=== PATIENT | male | born 1950 ===

== ENCOUNTER 2023-11-05 11:02 | Outpatient (CLI) | payer MEDICARE, SELFPAY ==
[2023-11-05 19:12] LABS: Basophils Percent Auto 0.4 % (0.2-1.2); Eosinophils Absolute Auto 0.1 K/mm3 (0-0.3); Eosinophils Percent Auto 1.3 % (0-4.4); Hemoglobin 15.4 g/dL (14.0-18.0); Immature Granulocyte Absolute 0.06 K/mm3 (0.00-0.031); Immature Granulocyte Percent A 0.6 % (0-0.5); Lymphocytes Absolute Auto 1.79 K/mm3 (0.9-3.2); Lymphocytes Percent Auto 18.8 % (18.3-44.2); Mean Corpuscular HGB Conc 32.1 g/dl (32-36); Mean Corpuscular Hemoglobin 30.6 pg (26-34); Mean Corpuscular Volume 95.2 fl (80-100); Mean Platelet Volume 10.7 fl (7.4-10.4); Monocytes Absolute Auto 0.7 K/mm3 (0.1-0.6); Monocytes Percent Auto 6.8 % (2.6-8.5); Neutrophils Absolute Auto 6.9 K/mm3 (1.3-6.7); Neutrophils Percent Auto 72.1 % (45.5-73.1); Platelet Count Result 243 k/mm3 (150-375); Red Blood Count 5.04 M/mm3 (4.6-6.20); Red Cell Distribution Width 14.8 % (11.5-14.5); White Blood Count 9.5 K/mm3 (4.5-10.0)
[2023-11-05 20:30] LABS: Alanine Aminotransferase 20 U/L (6-50); Albumin Level 4.7 g/dL (3.5-5.1); Alkaline Phosphatase 104 U/L (38-126); Anion Gap 13 mmol/L (4-12); Aspartate Amino Transferase 45 U/L (17-59); Bilirubin,Total 0.4 mg/dL (0.2-1.3); Blood Urea Nitrogen 15 mg/dL (9-20); Calcium 9.5 mg/dL (8.4-10.2); Carbon Dioxide 23 mmol/L (22-30); Chloride 103 mmol/L (98-107); Cholesterol 112 mg/dL (0-200); Estimated Glomerular Filt Rate > 60; Glucose 96 mg/dL (65-110); HDL Direct 34 mg/dL; Potassium 4.4 mmol/L (3.4-5.0); Sodium 139 mmol/L (137-145); Triglycerides 177 mg/dL (<150)
[2023-11-05 20:41] LABS: LDL Cholesterol Direct 44 mg/dL
== END 2023-11-05 11:03 | disposition home or self-care (01) ==
PROVIDERS: PCP Nurse Practitioner Adult Health; Visit Provider Nurse Practitioner Adult Health
DX: E78.5 Hyperlipidemia, unspecified (principal)
CPT/HCPCS: 36415; 80053; 80061; 84443; 85025

== ENCOUNTER 2024-03-09 14:45 | Outpatient (CLI) | payer MEDICARE, SELFPAY ==
[2024-03-09 19:12] LABS: Basophils Percent Auto 0.4 % (0.2-1.2); Eosinophils Absolute Auto 0.1 K/mm3 (0-0.3); Eosinophils Percent Auto 1.2 % (0-4.4); Hematocrit 42.9 % (42.0-52.0); Immature Granulocyte Absolute 0.05 K/mm3 (0.00-0.031); Immature Granulocyte Percent A 0.6 % (0-0.5); Lymphocytes Absolute Auto 1.58 K/mm3 (0.9-3.2); Lymphocytes Percent Auto 17.6 % (18.3-44.2); Mean Corpuscular Hemoglobin 31.7 pg (26-34); Mean Corpuscular Volume 90.7 fl (80-100); Mean Platelet Volume 10.7 fl (7.4-10.4); Monocytes Absolute Auto 0.6 K/mm3 (0.1-0.6); Monocytes Percent Auto 6.9 % (2.6-8.5); Neutrophils Absolute Auto 6.6 K/mm3 (1.3-6.7); Neutrophils Percent Auto 73.3 % (45.5-73.1); Platelet Count Result 243 k/mm3 (150-375); Red Blood Count 4.73 M/mm3 (4.6-6.20); Red Cell Distribution Width 14.4 % (11.5-14.5)
[2024-03-09 19:25] LABS: Alanine Aminotransferase 18 U/L (6-50); Alkaline Phosphatase 112 U/L (38-126); Amylase 93 U/L (30-110); Anion Gap 5 mmol/L (4-12); Aspartate Amino Transferase 33 U/L (17-59); Bilirubin,Total 0.5 mg/dL (0.2-1.3); Blood Urea Nitrogen 11 mg/dL (9-20); Carbon Dioxide 24 mmol/L (22-30); Chloride 106 mmol/L (98-107); Cholesterol 131 mg/dL (0-200); Estimated Glomerular Filt Rate > 60; Glucose 103 mg/dL (65-110); HDL Direct 28 mg/dL; Lipase 284 U/L (23-300); Potassium 4.3 mmol/L (3.4-5.0); Sodium 135 mmol/L (137-145); Triglycerides 270 mg/dL (<150)
[2024-03-09 19:36] LABS: LDL Cholesterol Direct 62 mg/dL
== END 2024-03-09 14:46 | disposition home or self-care (01) ==
PROVIDERS: PCP Nurse Practitioner Adult Health; Visit Provider Nurse Practitioner Adult Health
DX: C25.9 Malignant neoplasm of pancreas, unspecified (principal); E78.5 Hyperlipidemia, unspecified
CPT/HCPCS: 36415; 80053; 80061; 82150; 83690; 85025

== ENCOUNTER 2024-07-14 14:54 | Outpatient (CLI) | payer MEDICARE, MEDICAID, SELFPAY ==
--- OUTSIDE RECORDS SUMMARY | 2024-07-14 16:18 | XMS_ITS | Clinical Summary ---
Author Organization [facility] Medical [facility] Building A Address [address] [place] [address] Care Team Providers Care General Claims Agent Name Role Phone Magnus Villafuerte MD Primary Care Provider [phone] Allergies No known active allergies Medications ibuprofen (ADVIL,MOTRIN) 200 mg tab/cap Take 1 tablet/capsule (200 mg total) by mouth every 6 (six) hours as needed for pain Active aspirin 81 mg enteric coated tablet Take 1 tablet (81 mg total) by mouth daily 9 Active acetaminophen (TYLENOL) 500 mg tablet Take 2 tablets (1,000 mg total) by mouth every 6 (six) hours as needed 9 Active atorvastatin (LIPITOR) 80 mg tablet Take 1 tablet (80 mg total) by mouth daily 30 tablet 11 1 Active cyclobenzaprine (FLEXERIL) 5 mg tablet Take 1 tablet (5 mg total) by mouth 3 (three) times a day as needed for muscle spasms 12 tablet 3 Active HYDROcodone-js taminophen (NORCO) 5-325 mg per tabletIndicatio ns:Pain Take 1 tablet by mouth every 6 (six) hours as needed for pain 12 tablet 3 Active lidocaine (LIDODERM) 5 % Place 1 patch on the skin daily as needed for pain (back or hip pain) Remove & discard patch within 12 hours or as directed by . 30 patch 3 Active polyethylene glycol (MIRALAX) 17 gram packetIndicatio ns:constipation Take 1 packet (17 g total) by mouth daily as needed for constipation 12 packet 3 Active Active Problems Problem Noted Date Diagnosed Date Mixed hyperlipidemia 04/16/2023 Assessment & Plan (04/16/2023 9:57 AM CAN TENDER): Stable continue Lipitor Hx of AKA (above knee amputation), right 023 Assessment & Plan (03/05/2023 12:03 PM CAN TENDER): Impression: Patient is status post right thuhk-mgm-gbkq amputation. Surgical incision is well approximated, healing with kat intact. The patient has an adequate residual limb that would be appropriate for a level K3 prosthesis. They're currently undergoing prosthesis evaluation and fitting for a right eegmq-ogk-rxkh prosthesis. Patient has no complaints or concerns at this time. I have examined the patient and recommend a right ozeow-dzx-agtn prosthetic. The patient was a level K3 ambulator prior to his amputation. 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 Patient is very motivated to return to normal functioning once prosthesis is obtained and is capable walking on uneven surfaces and able to traverse multiple level barriers including stairs, curbs and hills. The patient currently has adequate upper extremity limb strength and ability to transfer from there chair to a bed, couch or toilet. The patient does not have any other comorbidities that would hinder their ability to return to full function within a reasonable amount of time. Plan: Kat removed at bedside. -patient to follow-up in 6 weeks. -recommend evaluation with [facility] for a right owfan-aja-pfzk prosthesis. Severe malnutrition 02/14/2023 Mass of pancreas 02/06/2023 Pancreatic mass 02/04/2023 Lung nodule 02/04/2023 Localized swelling of right foot 01/31/2023 Cellulitis of foot 01/30/2023 PAOD (peripheral arterial occlusive disease) Assessment & Plan (04/16/2023 9:57 AM CAN TENDER): Status post right above knee amputation. Doing well and completely healed. Continue working with [facility], can follow-up as needed. Tobacco abuse disorder 07/03/2020 Surgical History Surgery Date Site/Laterality Comments FEMORAL ARTERY STENT 04/14/2019 - 04/13/2020 Medical History Medical History Date Comments High cholesterol Mixed hyperlipidemia 04/16/2023 Social History Tobacco Use Types Packs/Day Years Used Date Smoking Tobacco: Every Day Cigarettes 0.1 50 Smokeless Tobacco: Never Tobacco Cessation:Ready to Q uit: Not Asked; Counseling Given: Not Answered Alcohol Use Standard Drinks/Week Comments Not Currently 0 (1 standard drink = 0.6 oz pur e alcohol) [facility] Utilities Answer Date Recorded In the past 12 months has [employer] e electric, gas, oil, or water company threatened to shut off services in your home? No 02/14/2023 Social Connection and Isolation Panel [NHANES] A nswer Date Recorded In a typical week, how many times do you talk on the phone with family, friends, or neighbors? Three times a week 02/14/2023 How often do you get togethe r with friends or relatives? Three times a week 02/14/2023 How often do you attend chur ch or samaritan services? Never 02/14/2023 Do you belong to any clubs o r organizations such as presybeterian groups, unions, fraternal or athletic groups, or school groups? No 02/14/2023 How often do you attend meet ings of the clubs or organizations you belong to? Never 02/14/2023 Are you , , di vorced, , never , or living with a partner? Never 02/14/2023 AUDIT-C Answer Date Recorded Q1: How often do you have a drink containing alcohol? Never 02/05/2023 Q2: How many drinks containi ng alcohol do you have on a typical day when you are drinking? Patient does not drink Q3: How often do you have si x or more drinks on one occasion? Never 02/05/2023 Overall Financial Resource Strain (CARDIA) Answe r Date Recorded How hard is it for you to pa y for the very basics like food, housing, medical care, and heating? Not hard at all 02/14/2023 PHQ-2 Answer Date Recorded PHQ-2 Total Score (If total score is 3 or more points, staff should administer the PHQ-9) 0 02/05/2023 Hunger Vital Sign Answer Date Recorded Within the past 12 months, y ou worried that your food would run out before you got the money to buy more. Never true 02/15/20 23 Within the past 12 months, t he food you bought just didn't last and you didn't have money to get more. Never true 02/14/2023 PRAPARE - Transportation Answer Date Re corded In the past 12 months, has l ack of transportation kept you from medical appointments or from getting medications? No 06/2022 In the past 12 months, has l ack of transportation kept you from meetings, work, or from getting things needed for daily living? No 02/14/2023 Housing Stability Vital Sign Answer Demarco e Recorded In the last 12 months, was t here a time when you were not able to pay the mortgage or rent on time? No 02/14/2023 In the last 12 months, how many places have you lived? 1 02/14/2023 In the last 12 months, was t here a time when you did not have a steady place to sleep or slept in a fci (including now)? No 02/14/2023 Personal Safety Answer Date Recorded Have you ever been in or are you currently in a harmful physical or emotional relationship or is someone making you feel afraid or unsafe? Denies 02/05/2023 Sex and Gender Information Value Date Recorded Sex Assigned at Not on file Legal Sex Male 8:12 AM CAN TENDER Gender Identity Not on file Sexual Orientation Not on file Obstetrics History Last Filed Vital Signs Vital Sign Reading Time Taken Comments Blood Pressure 106/66 04/16/2023 9:41 AM CAN TENDER Pulse 84 04/16/2023 9:41 AM CAN TENDER Temperature 36.6 C (97.9 F) 02/18/2023 11:50 AM CAN TENDER Respiratory Rate 18 02/18/2023 11:50 AM CAN TENDER Oxygen Saturation 92% 04/16/2023 9:41 AM CAN TENDER Inhaled Oxygen Concentration - - Weight 59 kg (130 lb) 03/05/2023 10:31 AM CAN TENDER Height 182.9 cm (6') 03/05/2023 10:31 AM CAN TENDER Body Mass Index 17.63 03/05/2023 10:31 AM CAN TENDER Plan of Treatment Health Maintenance Due Date Last Done Comments Colon Cancer Screening-Colonoscopy 1950 Hepatitis C Screening 1950 DTaP/Tdap/Td Vaccine (1 - Tdap) 1961 Hepatitis B Screening 1968 Well Visit 65+ 2015 Zoster Vaccine (2 of 3) 09/15/2015 07/21/2015 Depression Screening 01/31/2024 01/30/2023 Fall Risk Assessment 02/19/2024 02/18/2023 Influenza Vaccine (Season Ended) 2024 12/19/19 19, 01/25/2015 Pneumococcal vaccine 65+ Completed 019, 12/26/2017, 05/15/2015 Abdominal Aortic Aneurysm (A AA) Screen Completed 02/01/2023, 01/31/2023, 07/08/2018 Procedures Procedure Name Priority Date/Time Associated Diagnosis Comments CT CHEST ABDOMEN W CONTRAST IP Routine 02/01/2023 3:12 PM CDT from Last 3 Months or Most Recently Relevant to Health Maintenance Results * CT Chest Abdomen W Contrast (02/01/2023 3:12 PM CDT) Anatomical Region Laterality Modality Body N/A Computed Tomogra phy 02/01/2023 4:44 PM CDT Narrative 02/01/2023 5:03 PM CDT EXAM DESCRIPTION: CT CHEST ABDOMEN W CONTRAST REASON FOR STUDY: Assess for malignancy.. TECHNIQUE: CT scan of the chest and abdomen performed with intravenous and without oral contrast using helical scanning technique with dynamic intravenous contrast injection. Reconstructed coronal and sagittal MPR images reviewed. All images stored on PACS. Automated exposure control was used as a dose optimization technique for this examination. CONTRAST TYPE/DOSE: 75mL of IOVERSOL 350 MG IODINE/ML INTRAVENOUS SYRINGE was injected via the intravenous COMPARISON: 01/31/2023 CT angiography of the abdomen REFERENCE: Per ACR white paper recommendations, unless otherwise specified no follow-up imaging is recommended for incidental renal and adrenal lesions per consensus recommendations based on imaging criteria. Further lab evaluation could be pursued based on clinical findings. FINDINGS: CHEST LUNGS: There is overall mild pulmonary emphysema. In the right lower lobe there is a 1.4 x 1.1 x 1.3 cm irregular/spiculated nodule. No pneumonic consolidation or pulmonary edema is seen PLEURA: No effusion. No pneumothorax. MEDIASTINUM/NASIR: No identified masses or abnormal nodes. HEART: Normal heart size. No pericardial effusion. No suspicious intracardiac filling defect is seen. VASCULATURE CHEST: There is moderate atherosclerosis of the great vessels without thoracic aortic aneurysm. There are coronary calcifications. AXILLA: No adenopathy. CHEST WALL: No masses. No subcutaneous air. HARDWARE/LIFELINES: None. MUSCULOSKELETAL CHEST: No aggressive bone lesion or acute fracture is seen. There are multiple Schmorl's nodes and multilevel degenerative disc disease in the visualized spine.. No high-grade osseous spinal canal stenosis is seen ABDOMEN LIVER: There is a cyst in the right eliza liver on image 92 series 2 there are additional too small to characterize hypoattenuating foci within the liver. Statistically these most likely represent cysts, but in light of the lung findings above, there are indeterminate. GALLBLADDER: Normal BILE DUCTS: No intrahepatic or extrahepatic ductal dilatation. SPLEEN: Normal size. No focal lesions. PANCREAS: There is enlargement of the pancreatic tail, measuring approximately 4.5 x 3.6 cm on image 109 of series 2. Within this focally enlarged area, the previously seen hypoattenuating 1.6 cm focus is not as well seen on this venous phase exam. (Image 111 of series 2). ADRENALS: Normal. KIDNEYS/URINARY TRACT: Hypoattenuating foci in the left kidney measure simple fluid density and are compatible with benign cysts. The renal parenchyma otherwise enhances symmetrically. There is no radiopaque urolithiasis or visualized hydroureteronephrosis. GI: Visualized colon is normal in course and in caliber and without wall thickening or evidence of obstruction.. There is a small hiatal hernia. The stomach is otherwise unremarkable. Visualized small bowel is unremarkable PERITONEUM: No ascites or free air. RETROPERITONEUM: No mass or adenopathy. VASCULATURE ABDOMEN: Redemonstrated occlusion of the visualized portions of the left common iliac artery stent. Right common iliac stent appears grossly patent, but there is stenosis in its proximal portion, better assessed on CT angiography from 01/31/2023. There is severe atherosclerosis of the infrarenal abdominal aorta with moderate narrowing of the aortic lumen in the infrarenal abdominal aorta. Stable infrarenal abdominal aortic aneurysm, measuring up to 3.3 cm. No gross change in the additional arteries, better evaluated on the comparison exam. No evidence of venous thrombosis is seen in the evaluated portions MUSCULOSKELETAL ABDOMEN: No acute findings. Degenerative disc disease. OTHER: No significant abnormality. IMPRESSION: 1.4 cm irregular/spiculated right lower lobe pulmonary nodule is suspicious for malignancy. Recommend PET-CT versus tissue sampling, in keeping with Fleischner Society recommendations. Focal enlargement of the pancreatic tail. 1.6 cm hypoattenuating focus is redemonstrated within this enlarged pancreatic tail. These findings are indeterminate. Recommend further evaluation with pancreatic protocol MRI. Multiple too small to characterize hypoattenuating foci in the liver. Statistically these most likely represent cysts, but in light of the lung findings, they are indeterminate. THIS IS AN ELECTRONICALLY VERIFIED FINAL REPORT 02/01/2023 5:03 PM - Electronically signed by Srinivasa Donohue M.D. MZ: DEBORA Report ID: [id number] Reading Location: [id number] Procedure Note Srinivasa Donohue MD - 02/01/2023 EXAM DESCRIPTION: CT CHEST ABDOMEN W CONTRAST REASON FOR STUDY: Assess for malignancy.. TECHNIQUE: CT scan of the chest and abdomen performed with intravenousand without oral contrast using helical scanning technique with dynamic intravenous contrast injection. Reconstructed coronal and sagittal MPRimages reviewed. All images stored on PACS. Automated exposure control wasused as a dose optimization technique for this examination. CONTRAST TYPE/DOSE: 75mL of IOVERSOL 350 MG IODINE/ML INTRAVENOUSSYRINGE was injected via the intravenous COMPARISON: 01/31/2023 CT angiography of the abdomen REFERENCE: Per ACR white paper recommendations, unless otherwise specifiedno follow-up imaging is recommended for incidental renal and adrenal lesionsper consensus recommendations based on imaging criteria. Further labevaluation could be pursued based on clinical findings. FINDINGS: CHEST LUNGS: There is overall mild pulmonary emphysema. In the right lowerlobe there is a 1.4 x 1.1 x 1.3 cm irregular/spiculated nodule. No pneumonic consolidation or pulmonary edema is seen PLEURA: No effusion. No pneumothorax. MEDIASTINUM/NASIR: No identified masses or abnormal nodes. HEART: Normal heart size. No pericardial effusion. No suspicious intracardiac filling defect is seen. VASCULATURE CHEST: There is moderate atherosclerosis of the great vessels without thoracic aortic aneurysm. There are coronary calcifications. AXILLA: No adenopathy. CHEST WALL: No masses. No subcutaneous air. HARDWARE/LIFELINES: None. MUSCULOSKELETAL CHEST: No aggressive bone lesion or acute fracture isseen. There are multiple Schmorl's nodes and multilevel degenerative discdisease in the visualized spine.. No high-grade osseous spinal canal stenosis isseen ABDOMEN LIVER: There is a cyst in the right eliza liver on image 92 series 2 thereare additional too small to characterize hypoattenuating foci within theliver. Statistically these most likely represent cysts, but in light of the lung findings above, there are indeterminate. GALLBLADDER: Normal BILE DUCTS: No intrahepatic or extrahepatic ductal dilatation. SPLEEN: Normal size. No focal lesions. PANCREAS: There is enlargement of the pancreatic tail, measuring approximately 4.5 x 3.6 cm on image 109 of series 2. Within this focally enlarged area, the previously seen hypoattenuating 1.6 cm focus is not aswell seen on this venous phase exam. (Image 111 of series 2). ADRENALS: Normal. KIDNEYS/URINARY TRACT: Hypoattenuating foci in the left kidney measuresimple fluid density and are compatible with benign cysts. The renal parenchyma otherwise enhances symmetrically. There is no radiopaque urolithiasis or visualized hydroureteronephrosis. GI: Visualized colon is normal in course and in caliber and without wall thickening or evidence of obstruction.. There is a small hiatal hernia.The stomach is otherwise unremarkable. Visualized small bowel is unremarkable PERITONEUM: No ascites or free air. RETROPERITONEUM: No mass or adenopathy. VASCULATURE ABDOMEN: Redemonstrated occlusion of the visualized portionsof the left common iliac artery stent. Right common iliac stent appearsgrossly patent, but there is stenosis in its proximal portion, better assessed onCT angiography from 01/31/2023. There is severe atherosclerosis of the infrarenal abdominal aorta with moderate narrowing of the aortic lumen inthe infrarenal abdominal aorta. Stable infrarenal abdominal aortic aneurysm, measuring up to 3.3 cm. No gross change in the additional arteries,better evaluated on the comparison exam. No evidence of venous thrombosis isseen in the evaluated portions MUSCULOSKELETAL ABDOMEN: No acute findings. Degenerative disc disease. OTHER: No significant abnormality. IMPRESSION: 1.4 cm irregular/spiculated right lower lobe pulmonary nodule issuspicious for malignancy. Recommend PET-CT versus tissue sampling, in keeping with Fleischner Society recommendations. Focal enlargement of the pancreatic tail. 1.6 cm hypoattenuating focusis redemonstrated within this enlarged pancreatic tail. These findings are indeterminate. Recommend further evaluation with pancreatic protocol MRI. Multiple too small to characterize hypoattenuating foci in the liver. Statistically these most likely represent cysts, but in light of the lung findings, they are indeterminate. THIS IS AN ELECTRONICALLY VERIFIED FINAL REPORT 02/01/2023 5:03 PM - Electronically signed by Srinivasa Donohue M.D. MZ: DEBORA Report ID: [id number] Reading Location: [place] [id number] [address] [facility] DO IMG CT PROCEDURES Tamra l Result from Last 3 Months or Most Recently Relevant to Health Maintenance Insurance [facility] MEDICAID GENERIC RISK OTHER IDPA [facility] MEDICARE ADVANTAGE IDPA [employer] MEDICARE ADVANTAGE Advance Directives For more information, please contact: [phone] Documents on File Type Date Recorded Patient Fret Saw Operator Expl anation ADVANCE DIRECTIVE 02/17/2023 11:49 AM POLS T - Phys Order for PT Preferences ADVANCE DIRECTIVE 02/16/2023 12:46 PM Stoney r of Centrifugal Extractor Operator-Medical ADVANCE DIRECTIVE 02/11/2023 2:26 PM Stoney [facility] of Centrifugal Extractor Operator-Medical * Full Code (Latest Code Status on File) Date Activated Date Inactivated Comments 02/07/2023 9:42 AM 02/18/2023 5:44 PM * Full Code Date Activated Date Inactivated Comments 02/05/2023 2:21 PM 02/07/2023 9:42 AM * Full Code Date Activated Date Inactivated Comments 01/30/2023 9:07 PM 02/05/2023 1:23 PM * Full Code Date Activated Date Inactivated Comments 01/30/2023 7:29 PM 01/30/2023 9:07 PM Healthcare Agents on File Name Relationship Healthcare Agent Relationshi p Communication Carlos Enrique [facility] Health Care Agent Jas V[facility] Health Care Agent Care Teams General Claims Agent Relationship Specialty Start Date End Date Magnus Villafuerte MD PCP - General Family Practice 01/30/23
--- OUTSIDE RECORDS SUMMARY | 2024-07-14 16:18 | XMS_ITS | Continuity of Care Document ---
Author Name [facility] Organization [facility] Care Team Providers Care Insurance Account Representative Name Role Phone [facility] Unavailable Unavailable Problems Combined list of problems from [facility] and [facility] facilities. It does not include entries that were removed or entered in error. 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 Diagnosis: ICD-10-CM I73.9 Peripheral vascular disease, unspecified Active Diagnosis [facility] Diagnosis: ICD-10-CM M86.8X9 Other osteomyelitis, unspecified sites Active Diagnosis [facility] Diagnosis: ICD-10-CM Z00.01 Encounter for general adult medical exam w abnormal findings Active Diagnosis [facility] Results Combined list of recent chemistry, hematology and other laboratory results from [facility] and [facility], ranging from 15 months to all on record, depending upon the facility. Order Name Results Value Reference Range Date Interpretation Specimen Comments Source GLUCOSE, BLOOD-po ct (STL) GLUCOSE [MASS/VOLU ME] IN BLOOD BY AUTOMATED TEST STRIP 82 mg/dL 72 - 99 05/14 Specimen Type: BLOOD Comment: Test Performed by: [id number] Meter #: [id number] Ordering Provider: Addie BHARDWAJ Report Released Date/Time: May 14, 2023 09:00 AM Reporting Lab: [address] [address] Performing Lab: [address] [address] [facility] CBC LEUKOCYTES [#/VOLUME] IN BLOOD BY AUTOMATED COUNT 9.9 10*3/uL 3.6 - 11.2 04/01 Specimen Type: BLOOD No comment entered. Ordering Provider: PRASANTH ROGERS Report Released Date/Time: Apr 01, 2023 12:28 PM Reporting Lab: [place] [phone] Performing Lab: [address] [address] [facility] CBC ERYTHROCYT ES [#/VOLUME] IN BLOOD BY AUTOMATED COUNT 4.45 10*6/uL 4.10 - 5.70 04/01 Specimen Type: BLOOD No comment entered. Ordering Provider: PRASANTH ROGERS Report Released Date/Time: Apr 01, 2023 12:28 PM Reporting Lab: [address] [address] Performing Lab: [address] [address] [facility] CBC HEMOGLOBIN [MASS/VOLU ME] IN BLOOD 13.7 g/dL 13.1 - 16.8 04/01 Specimen Type: BLOOD No comment entered. Ordering Provider: PRASANTH ROGERS Report Released Date/Time: Apr 01, 2023 12:28 PM Reporting Lab: [address] [address] Performing Lab: [address] [address] [facility] CBC HEMATOCRIT [VOLUME FRACTION] OF BLOOD 40.9 38.2 - 48.4 04/01 Specimen Type: BLOOD No comment entered. Ordering Provider: PRASANTH ROGERS Report Released Date/Time: Apr 01, 2023 12:28 PM Reporting Lab: [facility] [address] [place] [phone] Performing Lab: [facility] [address] [place] [address] [facility] CBC MCV [ENTITIC VOLUME] BY AUTOMATED COUNT 91.9 fL 80.0 - 100.0 04/01 Specimen Type: BLOOD No comment entered. Ordering Provider: PRASANTH ROGERS Report Released Date/Time: Apr 01, 2023 12:28 PM Reporting Lab: [facility] [address] [place] [address] Performing Lab: [address] [address] [facility] CBC MCH [ENTITIC MASS] BY AUTOMATED COUNT 30.8 pg 27.0 - 34.0 04/01 Specimen Type: BLOOD No comment entered. Ordering Provider: PRASANTH ROGERS Report Released Date/Time: Apr 01, 2023 12:28 PM Reporting Lab: [facility] [address] [place] [phone] Performing Lab: [address] [address] [facility] CBC MCHC [MASS/VOLU ME] BY AUTOMATED COUNT 33.5 g/dL 33.0 - 36.0 04/01 Specimen Type: BLOOD No comment entered. Ordering Provider: PRASANTH ROGERS Report Released Date/Time: Apr 01, 2023 12:28 PM Reporting Lab: [facility] [address] [place] [phone] Performing Lab: [facility] [address] [place] [phone] [facility] CBC PLATELETS [#/VOLUME] IN BLOOD BY AUTOMATED COUNT 237 10*3/uL 150 - 400 04/01 Specimen Type: BLOOD No comment entered. Ordering Provider: PRASANTH ROGERS Report Released Date/Time: Apr 01, 2023 12:28 PM Reporting Lab: [facility] [address] [facility] [address] Performing Lab: [facility] [address] [facility] [address] [facility] CBC PLATELET MEAN VOLUME [ENTITIC VOLUME] IN BLOOD BY AUTOMATED COUNT 10.3 fL 7.5 - 11.2 04/01 Specimen Type: BLOOD No comment entered. Ordering Provider: PRASANTH ROGERS Report Released Date/Time: Apr 01, 2023 12:28 PM Reporting Lab: [facility] [address] [facility] [address] Performing Lab: [facility] [address] [place] [phone] [facility] CBC ERYTHROCYT E DISTRIBUTI ON WIDTH [RATIO] BY AUTOMATED COUNT 15.1 11.8 - 15.1 04/01 Specimen Type: BLOOD No comment entered. Ordering Provider: PRASANTH ROGERS Report Released Date/Time: Apr 01, 2023 12:28 PM Reporting Lab: [facility] [address] [facility] [address] Performing Lab: [facility] [address] [place] [phone] [facility] CBC LYMPHOCYTE S/100 LEUKOCYTES IN BLOOD BY AUTOMATED COUNT 18 04/01 Specimen Type: BLOOD No comment entered. Ordering Provider: PRASANTH ROGERS Report Released Date/Time: Apr 01, 2023 12:28 PM Reporting Lab: [facility] [address] [facility] [address] Performing Lab: [facility] [address] [facility] [address] [facility] CBC MONOCYTES/ 100 LEUKOCYTES IN BLOOD BY AUTOMATED COUNT 7 04/01 Specimen Type: BLOOD No comment entered. Ordering Provider: PRASANTH ROGERS Report Released Date/Time: Apr 01, 2023 12:28 PM Reporting Lab: [facility] [address] [place] [phone] Performing Lab: [facility] [address] [facility] [address] [facility] CBC NEUTROPHIL S/100 LEUKOCYTES IN BLOOD BY AUTOMATED COUNT 72 04/01 Specimen Type: BLOOD No comment entered. Ordering Provider: PRASANTH ROGERS Report Released Date/Time: Apr 01, 2023 12:28 PM Reporting Lab: [facility] [address] [place] [phone] Performing Lab: [facility] [address] [place] [phone] [facility] CBC EOSINOPHIL S/100 LEUKOCYTES IN BLOOD BY AUTOMATED COUNT 2 04/01 Specimen Type: BLOOD No comment entered. Ordering Provider: PRASANTH ROGERS Report Released Date/Time: Apr 01, 2023 12:28 PM Reporting Lab: [address] [address] Performing Lab: [address] [address] [facility] CBC BASOPHILS/ 100 LEUKOCYTES IN BLOOD BY AUTOMATED COUNT 0 04/01 Specimen Type: BLOOD No comment entered. Ordering Provider: PRASANTH ROGERS Report Released Date/Time: Apr 01, 2023 12:28 PM Reporting Lab: [address] [address] Performing Lab: [address] [address] [facility] CBC LYMPHOCYTE S [#/VOLUME] IN BLOOD BY AUTOMATED COUNT 1.79 10*3/uL 0.77 - 4.50 04/01 Specimen Type: BLOOD No comment entered. Ordering Provider: PRASANTH ROGERS Report Released Date/Time: Apr 01, 2023 12:28 PM Reporting Lab: [facility] [address] [place] [phone] Performing Lab: [address] [address] [facility] CBC MONOCYTES [#/VOLUME] IN BLOOD BY AUTOMATED COUNT 0.72 10*3/uL 0.19 - 0.80 04/01 Specimen Type: BLOOD No comment entered. Ordering Provider: PRASANTH ROGERS Report Released Date/Time: Apr 01, 2023 12:28 PM Reporting Lab: [place] [address] Performing Lab: [place] [phone] [facility] CBC NEUTROPHIL S [#/VOLUME] IN BLOOD BY AUTOMATED COUNT 7.15 10*3/uL 2.10 - 8.00 04/01 Specimen Type: BLOOD No comment entered. Ordering Provider: PRASANTH ROGERS Report Released Date/Time: Apr 01, 2023 12:28 PM Reporting Lab: [place] [address] Performing Lab: [address] [facility] CBC EOSINOPHIL S [#/VOLUME] IN BLOOD BY AUTOMATED COUNT 0.17 10*3/uL 0.00 - 0.60 04/01 Specimen Type: BLOOD No comment entered. Ordering Provider: PRASANTH ROGERS Report Released Date/Time: Apr 01, 2023 12:28 PM Reporting Lab: [place] [address] Performing Lab: [place] [phone] [facility] CBC BASOPHILS [#/VOLUME] IN BLOOD BY AUTOMATED COUNT 0.03 10*3/uL 0.00 - 0.20 04/01 Specimen Type: BLOOD No comment entered. Ordering Provider: PRASANTH ROGERS Report Released Date/Time: Apr 01, 2023 12:28 PM Reporting Lab: [place] [address] Performing Lab: [address] [phone] [facility] COMPREHE NSIVE METABOLI C PANEL CREATININE [MASS/VOLU ME] IN SERUM OR PLASMA 0.78 mg/dL 0.7 - 1.3 04/01 Specimen Type: PLASMA Comment: No hemolysis noted. Ordering Provider: PRASANTH ROGERS Report Released Date/Time: Apr 01, 2023 12:28 PM Reporting Lab: [facility] [address] [facility] [address] Performing Lab: [facility] [address] [facility] [address] [facility] COMPREHE NSIVE METABOLI C PANEL UREA NITROGEN [MASS/VOLU ME] IN SERUM OR PLASMA 10.5 mg/dL 9.0 - 25.0 04/01 Specimen Type: PLASMA Comment: No hemolysis noted. Ordering Provider: PRASANTH ROGERS Report Released Date/Time: Apr 01, 2023 12:28 PM Reporting Lab: [address] [address] Performing Lab: [facility] [address] [facility] [address] [facility] COMPREHE NSIVE METABOLI C PANEL GLUCOSE [MASS/VOLU ME] IN SERUM OR PLASMA 104 mg/dL 72 - 99 04/01 H Specimen Type: PLASMA Comment: No hemolysis noted. Ordering Provider: PRASANTH ROGERS Report Released Date/Time: Apr 01, 2023 12:28 PM Reporting Lab: [address] [address] Performing Lab: [facility] [address] [facility] [address] [facility] COMPREHE NSIVE METABOLI C PANEL SODIUM [MOLES/VOL UME] IN SERUM OR PLASMA 135 meq/L 136 - 145 04/01 L Specimen Type: PLASMA Comment: No hemolysis noted. Ordering Provider: PRASANTH ROGERS Report Released Date/Time: Apr 01, 2023 12:28 PM Reporting Lab: [address] [address] Performing Lab: [address] [address] [facility] COMPREHE NSIVE METABOLI C PANEL POTASSIUM [MOLES/VOL UME] IN SERUM OR PLASMA 3.8 meq/L 3.5 - 5 04/01 Specimen Type: PLASMA Comment: No hemolysis noted. Ordering Provider: PRASANTH ROGERS Report Released Date/Time: Apr 01, 2023 12:28 PM Reporting Lab: [facility] [address] [facility] [address] Performing Lab: [facility] [address] [facility] [address] [facility] COMPREHE NSIVE METABOLI C PANEL CHLORIDE [MOLES/VOL UME] IN SERUM OR PLASMA 102 meq/L 98 - 107 04/01 Specimen Type: PLASMA Comment: No hemolysis noted. Ordering Provider: PRASANTH ROGERS Report Released Date/Time: Apr 01, 2023 12:28 PM Reporting Lab: [facility] [address] [place] [phone] Performing Lab: [facility] [address] [facility] [address] [facility] COMPREHE NSIVE METABOLI C PANEL CARBON DIOXIDE, TOTAL [MOLES/VOL UME] IN SERUM OR PLASMA 21 meq/L 22 - 31 04/01 L Specimen Type: PLASMA Comment: No hemolysis noted. Ordering Provider: PRASANTH ROGERS Report Released Date/Time: Apr 01, 2023 12:28 PM Reporting Lab: [facility] [address] [facility] [address] Performing Lab: [facility] [address] [facility] [address] [facility] COMPREHE NSIVE METABOLI C PANEL CALCIUM [MASS/VOLU ME] IN SERUM OR PLASMA 9.9 mg/dL 8.4 - 10.4 04/01 Specimen Type: PLASMA Comment: No hemolysis noted. Ordering Provider: PRASANTH ROGERS Report Released Date/Time: Apr 01, 2023 12:28 PM Reporting Lab: [facility] [address] [facility] [address] Performing Lab: [facility] [address] [facility] [address] [facility] COMPREHE NSIVE METABOLI C PANEL PROTEIN [MASS/VOLU ME] IN SERUM OR PLASMA 7.0 g/dL 6 - 8.6 04/01 Specimen Type: PLASMA Comment: No hemolysis noted. Ordering Provider: PRASANTH ROGERS Report Released Date/Time: Apr 01, 2023 12:28 PM Reporting Lab: [facility] [address] [facility] [address] Performing Lab: [place] [address] [facility] [address] [facility] COMPREHE NSIVE METABOLI C PANEL ALBUMIN [MASS/VOLU ME] IN SERUM OR PLASMA 4.6 g/dL 3.4 - 5 04/01 Specimen Type: PLASMA Comment: No hemolysis noted. Ordering Provider: PRASANTH ROGERS Report Released Date/Time: Apr 01, 2023 12:28 PM Reporting Lab: [facility] [address] [facility] [address] Performing Lab: [facility] [address] [facility] [address] [facility] COMPREHE NSIVE METABOLI C PANEL BILIRUBIN. TOTAL [MASS/VOLU ME] IN SERUM OR PLASMA 0.4 mg/dL 0.2 - 1.2 04/01 Specimen Type: PLASMA Comment: No hemolysis noted. Ordering Provider: PRASANTH ROGERS Report Released Date/Time: Apr 01, 2023 12:28 PM Reporting Lab: [facility] [address] [facility] [address] Performing Lab: [facility] [address] [place] [phone] [facility] COMPREHE NSIVE METABOLI C PANEL ALKALINE PHOSPHATAS E [ENZYMATIC ACTIVITY/V OLUME] IN SERUM OR PLASMA 99 U/L 40 - 150 04/01 Specimen Type: PLASMA Comment: No hemolysis noted. Ordering Provider: PRASANTH ROGERS Report Released Date/Time: Apr 01, 2023 12:28 PM Reporting Lab: [facility] [address] [place] [address] Performing Lab: [facility] [address] [place] [phone] [facility] COMPREHE NSIVE METABOLI C PANEL ASPARTATE AMINOTRANS FERASE [ENZYMATIC ACTIVITY/V OLUME] IN SERUM OR PLASMA 15 U/L 5 - 34 04/01 Specimen Type: PLASMA Comment: No hemolysis noted. Ordering Provider: PRASANTH ROGERS Report Released Date/Time: Apr 01, 2023 12:28 PM Reporting Lab: [address] [address] Performing Lab: [address] [phone] [place] [address] [facility] COMPREHE NSIVE METABOLI C PANEL ALANINE AMINOTRANS FERASE [ENZYMATIC ACTIVITY/V OLUME] IN SERUM OR PLASMA 18 U/L 8 - 40 04/01 Specimen Type: PLASMA Comment: No hemolysis noted. Ordering Provider: PRASANTH ROGERS Report Released Date/Time: Apr 01, 2023 12:28 PM Reporting Lab: [facility] [address] [place] [phone] Performing Lab: [facility] [address] [facility] [address] [facility] COMPREHE NSIVE METABOLI C PANEL GLOMERULAR FILTRATION RATE/1.73 SQ M.PREDICTE D [VOLUME RATE/AREA] IN SERUM, PLASMA OR BLOOD BY CREATININE -BASED FORMULA (CKD-EPI 2020) 94.8 60 04/01 Specimen Type: PLASMA Comment: No hemolysis noted. Ordering Provider: PRASANTH ROGERS Report Released Date/Time: Apr 01, 2023 12:28 PM Reporting Lab: [facility] [address] [place] [phone] Performing Lab: [facility] [address] [place] [phone] [facility] HEP C Ab HCV Ab (STL) HEPATITIS C VIRUS AB [PRESENCE] IN SERUM Nonreact nasrin 04/01 Specimen Type: SERUM Comment: The listed sex of this patient may not be a typical indication for this test. Therefore, reference ranges or interpretiv e criteria listed may not be valid. Clinical correlation suggested. Ordering Provider: PRASANTH ROGERS Report Released Date/Time: Apr 01, 2023 01:18 PM Reporting Lab: [address] [address] Performing Lab: [address] [address] [facility] HGA1C HEMOGLOBIN A1C/HEMOGL OBIN.TOTAL IN BLOOD 5.4 4.0 - 6.0 04/01 Specimen Type: BLOOD No comment entered. Ordering Provider: PRASANTH ROGERS Report Released Date/Time: Apr 01, 2023 12:28 PM Reporting Lab: [address] [address] Performing Lab: [address] [address] [facility] HIV COMBO FOURTH GENERATI ON (STL) HIV 1+2 AB+HIV1 P24 AG [PRESENCE] IN SERUM OR PLASMA BY IMMUNOASSA Y Nonreact nasrin 04/01 Specimen Type: SERUM No comment entered. Ordering Provider: PRASANTH ROGERS Report Released Date/Time: Apr 01, 2023 01:18 PM Reporting Lab: [facility] [address] [place] [phone] Performing Lab: [facility] [address] [place] [phone] [facility] LIPID PANEL (STL) CHOLESTERO L [MASS/VOLU ME] IN SERUM OR PLASMA 116 mg/dL 0 - 200 04/01 Specimen Type: PLASMA Comment: No hemolysis noted. Ordering Provider: PRASANTH ROGERS Report Released Date/Time: Apr 01, 2023 12:28 PM Reporting Lab: [facility] [address] [facility] [address] Performing Lab: [facility] [address] [facility] [address] [facility] LIPID PANEL (STL) TRIGLYCERI DE [MASS/VOLU ME] IN SERUM OR PLASMA 153 mg/dL 0 - 150 04/01 H Specimen Type: PLASMA Comment: No hemolysis noted. Ordering Provider: PRASANTH ROGERS Report Released Date/Time: Apr 01, 2023 12:28 PM Reporting Lab: [address] [address] Performing Lab: [address] [address] [facility] LIPID PANEL (STL) CHOLESTERO L IN LDL [MASS/VOLU ME] IN SERUM OR PLASMA BY CALCULAFÉLIX N 52 mg/dL 04/01 Specimen Type: PLASMA Comment: No hemolysis noted. Ordering Provider: PRASANTH ROGERS Report Released Date/Time: Apr 01, 2023 12:28 PM Reporting Lab: [address] [address] Performing Lab: [address] [address] [facility] LIPID PANEL (STL) CHOLESTERO L IN HDL [MASS/VOLU ME] IN SERUM OR PLASMA 33 mg/dL 40 04/01 L Specimen Type: PLASMA Comment: No hemolysis noted. Ordering Provider: PRASANTH ROGERS Report Released Date/Time: Apr 01, 2023 12:28 PM Reporting Lab: [facility] [address] [place] [phone] Performing Lab: [address] [address] [facility] PROST. SPECIFIC AG.(PB-S TL) PROSTATE SPECIFIC AG [MASS/VOLU ME] IN SERUM OR PLASMA 4.588 ng/mL 0 - 4 04/01 HH Specimen Type: SERUM Comment: The listed sex of this patient may not be a typical indication for this test. Therefore, reference ranges or interpretiv e criteria listed may not be valid. Clinical correlation suggested. Ordering Provider: PRASANTH ROGERS Report Released Date/Time: Apr 01, 2023 12:28 PM Reporting Lab: [address] [address] Performing Lab: [place] [address] [facility] [phone] [place] [address] [facility] TSH (MA-PB-S TL) THYROTROPI N [UNITS/VOL UME] IN SERUM OR PLASMA 0.692 u[IU]/mL 0.47 - 5 04/01 Specimen Type: SERUM Comment: The listed sex of this patient may not be a typical indication for this test. Therefore, reference ranges or interpretiv e criteria listed may not be valid. Clinical correlation suggested. Ordering Provider: PRASANTH ROGERS Report Released Date/Time: Apr 01, 2023 12:28 PM Reporting Lab: [address] [address] Performing Lab: [place] [address] [facility] [phone] [place] [address] [facility] VITAMIN D, 25-HYDRO XY 25-HYDROXY VITAMIN D3 [MASS/VOLU ME] IN SERUM OR PLASMA 49.4 ng/mL 30 - 96 04/01 Specimen Type: SERUM Comment: The listed sex of this patient may not be a typical indication for this test. Therefore, reference ranges or interpretiv e criteria listed may not be valid. Clinical correlation suggested. Ordering Provider: PRASANTH ROGERS Report Released Date/Time: Apr 01, 2023 12:28 PM Reporting Lab: [facility] [address] [place] [phone] Performing Lab: [address] [phone] [place] [address] [facility] Encounters Combined list of: 1) Encounters from Department of [facility] facilities going backup to the last 18 months, not all [facility] inpatient encounters are included; 2) Encounters from the Department of Defense facilities going backup to 280 months. Location Location Details Encounter Type Encounter Number Reason For Visit Attending Provider ADM Date DC Date Status Disposition Source [facility] Outpatient Encounter [id number] Teresa RIVER 03/26 [facility] Outpatient Encounter [id number] Diagnos is: ICD-10- CM Z00.01 Encount er for general adult medical exam w MANOHAR Flynn 04/01 [facility] Outpatient Encounter [id number] 04/03 [facility] Outpatient Encounter [id number] 04/09 [facility] Outpatient Encounter [id number] 04/14 [facility] SELF-MGMT EDUC & TRAIN 1 [place] [id number] Diagnos is: ICD-10- CM M86.8X9 Other osteomy elitis, unspeci fied sites MARIALUISA STANTON 04/15 [facility] Outpatient Encounter [id number] 04/22 [facility] PROSTHETIC TRAING 1ST ENC [id number] Diagnos is: ICD-10- CM Z46.89 Encount er for fitting and adjustm ent of oth devices RECORD,MARIALUISA Moore 05/07 [facility] OFF/OP CONSLTJ NEW/EST SF 20 [id number] Diagnos is: ICD-10- CM I73.9 Periphe ral vascula r disease , unspeci fied KAELYN BENITEZ 05/07 [facility] Outpatient Encounter [id number] 05/08 [facility]P [place] 60 MIN [id number] Diagnos is: ICD-10- CM C25.9 Maligna nt neoplas m of pancrea s, unspeci fied JOHNE,ART C M 05/13 [facility] Outpatient Encounter [id number] 05/14 [facility] En[facility] [id number] 05/19 [facility] Outpatient Encounter [id number] 06/03 [facility] Outpatient Encounter [id number] 06/09 [facility] En[facility] [id number] 06/17 [facility] Outpatient Encounter [id number] 06/29 [facility] En[facility] [id number] 06/30 [facility] En[facility] [id number] 07/01 [facility] En[facility] [id number] 07/01 [facility] Outpatient [facility]counter [id number] 07/13 [facility] Outpatient Encounter [id number] Diagnos is: ICD-10- CM C25.9 Maligna nt neoplas m of pancrea s, unspeci fied ORESTES CARVAJAL 07/28 [facility] Outpatient Encounter [id number] Teresa RIVER 10/02 [facility] Outpatient Encounter [id number] 1 10/07 [facility] Social History Combined list of available smoking, tobacco, and other social history from Department of Defense and Veterans Affairs facilities. Social History Type Response Date Comment Sourc e Tobacco smoking status NHIS VA-TOBACCO USER EVERY DAY 04/01/2023 [facility] History of tobacco use VA-TOBACCO USE WI 30 MIN OF WAKEUP 04/01/2023 [facility]
--- OUTSIDE RECORDS SUMMARY | 2024-07-14 16:18 | XMS_ITS | Clinical Summary ---
Author Organization [facility] Address [address] [place] [address] Phone Care Team Providers Care Customs Compliance Director Name Role Phone Jose Fam Primary Care Provider [phone] Allergies No known active allergies Medications clopidogrel (PLAVIX) 75 MG Tablet Take 1 Tab by mouth daily. 90 Tab 9 Active Aspirin 81 MG Tablet Take 1 Tab by mouth daily. 100 Tab 9 Active Additional Information Patient taking differently:81 mg OralDAILY PRN, Reported on 02/19/2019 acetaminophen (TYLENOL) 500 MG Tablet Take 2 Tabs by mouth every 6 hours as needed for Mild or more severe pain. 100 Tab 9 Active Family History Medical History Relation Name Comments Heart Attack Father Other-comment Mother SURGICAL COMPL ICATIONS Relation Name Status Comments Father Mother Social History Tobacco Use Types Packs/Day Years Used Date Smoking Tobacco: Every Day Cigarettes 0.5 49 Smokeless Tobacco: Former Chew Tobacco Cessation:Ready to Q uit: Yes Alcohol Use Standard Drinks/Week Comments Not Currently 0 (1 standard drink = 0.6 oz pur e alcohol) QUIT 4 MONTHS AGO Sex and Gender Information Value Date Recorded Sex Assigned at Not on file Legal Sex Male 3:49 PM GAME TESTER Gender Identity Not on file Sexual Orientation Not on file Last Filed Vital Signs Vital Sign Reading Time Taken Comments Blood Pressure 160/60 10/09/2018 2:15 PM CDT Pulse 74 10/09/2018 2:15 PM CDT Temperature 36.1 C (97 F) 10/09/2018 2:15 PM CDT Respiratory Rate 16 10/09/2018 2:15 PM CDT Oxygen Saturation 96% 10/09/2018 2:15 PM CDT Inhaled Oxygen Concentration - - Weight 75.8 kg (167 lb) 10/07/2018 11:00 AM CDT Height 195.6 cm (6' 5 ) 10/07/2018 11:00 AM CDT Body Mass Index 19.8 10/07/2018 11:00 AM CDT Plan of Treatment Health Maintenance Due Date Last Done Comments Hepatitis C Virus (HCV) Screening 1950 TdaP Immunization 1950 Colonoscopy 1995 Colorectal Cancer Screening 1995 Cologuard 2000 Immunochemical Fecal Occult Blood 2000 Zoster Immunization (2 of 3) 09/15/2015 07/21/2015 Influenza Immunization (#1) 2023 01/25/2015 SARS-COV-2 Immunization (3 - season) 2023 12/01/2020, 11/10/2020 Respiratory Syncytial Virus (RSV) Immunization (Adult) (1 - 1-dose 75+ series) 2025 Pneumococcal Immunization (5 0+ years) Completed 12/26/2017, 05/15/2015 Pneumococcal Immunization Combined Discontinued 12/26/2017, 05/15/2015 Hepatitis B Immunization Aged Out No longer eligible based on patient's age to complete this topic Meningococcal Immunization (ACWY) Aged Out No longer eligible based on patient's age to complete this topic Rotavirus Immunization Aged Out No lo nger eligible based on patient's age to complete this topic Medical Devices Implanted Type Area Letterset Press Set Up Operator Device Identifier Shelf Expiration Date Model / Serial / Lot Stent Vasc 60mm 7mm Smart Cntrl Micromarker Iliac Ntnl Self Expand Micromesh Segment Delivery Hndl - [id number] Implanted:Qty: 1 on 08/28/2018 by Russell Bennett MD at [facility] IMPLANT Right: Leg [employer] 08/12/2019 [id number] / / [id number] Stent Vasc 40mm 8mm Smart Cntrl Micromarker Iliac Ntnl Self Expand Micromesh Segment Delivery Hndl - [id number] Implanted:Qty: 1 on 08/28/2018 by Russell Bennett MD at [facility] IMPLANT Right: Leg [employer] 02/11/2019 [id number] / / [id number] Stent Vasc 100mm 6mm Smart Cntrl Micromarker Iliac Ntnl Self Expand Micromesh Segment Delivery Hndl - [id number] Implanted:Qty: 1 on 08/28/2018 by Russell Bennett MD at [facility] IMPLANT Left: Leg [employer] 02/11/2019 [id number] / / [id number] Stent Vasc 80mm 8mm Smart Cntrl Micromarker Iliac Ntnl Self Expand Micromesh Segment Delivery Hndl - [id number] Implanted:Qty: 1 on 08/28/2018 by Russell Bennett MD at [facility] IMPLANT Left: Leg [employer] 10/11/2018 [id number] / / [id number] Device Clsr 70cm 6fr Angio-Seal Vip .035in Vasc Collagen Valuelink Gw Insertion Shth J Snowboard Designer - [id number] Implanted:Qty: 1 on 08/28/2018 by Russell Bennett MD at [facility] IMPLANT Left: Leg [employer] 03/13/2019 [id number] / / [id number] Device Clsr 70cm 6fr Angio-Seal Vip .035in Vasc Collagen Valuelink Gw Insertion Shth J Snowboard Designer - [id number] Implanted:Qty: 1 on 08/28/2018 by Russell Bennett MD at [facility] IMPLANT Right: Leg [employer] 03/13/2019 [id number] / / [id number] Stent Vasc 150mm 5.5mm 6fr Supera Twila Ntnl Otw Self Expand Closed End Braid Radopq 120cm Acpt - [id number] Implanted:Qty: 1 on 10/09/2018 by Russell Bennett MD at [facility] IMPLANT Leg [employer] 11/12/2019 [id number] 120-P6 / / [id number] Stent Vasc 150mm 6mm Smart Micromarker Iliac Ntnl Self Expand Micromesh Segment Delivery Hndl 120cm - [id number] Implanted:Qty: 1 on 10/09/2018 by Russell Bennett MD at [facility] IMPLANT Leg [employer] 10/11/2018 [id number] / / [id number] Device Clsr 70cm 6fr Angio-Seal Vip .035in Vasc Collagen Valuelink Gw Insertion Shth J Snowboard Designer - [id number] Implanted:Qty: 1 on 10/09/2018 by Russell Bennett MD at [facility] IMPLANT Leg [employer] 05/23/2019 [id number] / / [id number] Insurance MEDICARE [place]ID [place] Care Teams Customs Compliance Director Relationship Specialty Start Date End Date Jose [place] [address] [place] [address] PCP - General Family Medicine 06/19/18
--- OUTSIDE RECORDS SUMMARY | 2024-07-14 16:18 | XMS_ITS | Referral Summary ---
Author Organization [facility] Address [address] [place] [address] Care Team Providers Care Material Combiner Name Role Phone Magnus Villafuerte MD Primary Care Provider [phone] Allergies No known active allergies Medications ibuprofen [...] 04/16/2023 Assessment & Plan (04/16/2023 9:57 AM DIESEL MECHANIC APPRENTICE): Stable continue Lipitor Hx of AKA (above knee amputation), right 023 Assessment & Plan (03/05/2023 12:03 PM DIESEL MECHANIC APPRENTICE): Impression: Patient is status post right vrmfy-hqf-naju amputation. Surgical incision is well approximated, healing with kat intact. The patient has an adequate residual limb that would be appropriate for a level K3 prosthesis. They're currently undergoing prosthesis evaluation and fitting for a right fetrv-eah-ydqr prosthesis. Patient has no complaints or concerns at this time. I have examined the patient and recommend a right dihvf-hpm-djua prosthetic. The patient was a level K3 ambulator prior to his amputation. The patient is capable and has expressed a desire to live independently and do normal marine engineer cpvec and activities of daily living. Patient is [...] follow-up in 6 weeks. -recommend evaluation with Pole Tester for a right ttqqh-urb-uqjw prosthesis. Severe malnutrition 02/14/2023 Mass of pancreas 02/06/2023 Pancreatic mass 02/04/2023 Lung nodule 02/04/2023 Localized swelling of right foot 01/31/2023 Cellulitis of foot 01/30/2023 PAOD (peripheral arterial occlusive disease) Assessment & Plan (04/16/2023 9:57 AM DIESEL MECHANIC APPRENTICE): Status post right above knee amputation. Doing well and completely healed. Continue working with Pole Tester, can follow-up as needed. Tobacco abuse disorder 07/03/2020 Social History Tobacco Use Types Packs/Day Years Used Date Smoking Tobacco: Every Day Cigarettes 0.1 50 Smokeless Tobacco: Never Tobacco Cessation:Ready to Q uit: Not Asked; Counseling Given: Not Answered Alcohol Use Standard Drinks/Week Comments Not Currently 0 (1 standard drink = 0.6 oz pur e alcohol) [place] Utilities Answer Date Recorded In the past 12 months has [employer], gas, oil, or water [employer] threatened to shut off services in your [...] often do you attend chur ch or quaker services? Never 02/14/2023 Do you belong to any clubs o r organizations such as tenriism groups, unions, fraternal or athletic groups, or [...] place to sleep or slept in a skilled nursing (including now)? No 02/14/2023 Personal Safety Answer Date Recorded Have you ever been in or are you currently in a harmful physical or emotional relationship or is someone making you feel afraid or unsafe? Denies 02/05/2023 Sex and Gender Information Value Date Recorded Sex Assigned at Not on file Legal Sex Male 8:12 AM DIESEL MECHANIC APPRENTICE Gender Identity Not on file Sexual Orientation Not on file Last Filed Vital Signs Vital Sign Reading Time Taken Comments Blood Pressure 106/66 04/16/2023 9:41 AM DIESEL MECHANIC APPRENTICE Pulse 84 04/16/2023 9:41 AM DIESEL MECHANIC APPRENTICE Temperature 36.6 C (97.9 F) 02/18/2023 11:50 AM DIESEL MECHANIC APPRENTICE Respiratory Rate 18 02/18/2023 11:50 AM DIESEL MECHANIC APPRENTICE Oxygen Saturation 92% 04/16/2023 9:41 AM DIESEL MECHANIC APPRENTICE Inhaled Oxygen Concentration - - Weight 59 kg (130 lb) 03/05/2023 10:31 AM DIESEL MECHANIC APPRENTICE Height 182.9 cm (6') 03/05/2023 10:31 AM DIESEL MECHANIC APPRENTICE Body Mass Index 17.63 03/05/2023 10:31 AM DIESEL MECHANIC APPRENTICE Plan of Treatment Not on file Procedures Procedure Name Priority Date/Time Associated Diagnosis [...] is seen PLEURA: No effusion. No pneumothorax. MEDIASTINUM/NASRI: No identified masses or abnormal nodes. HEART: [...] Srinivasa Donohue M.D. MZ: DEBORA Report ID: [id number] Reading Location: [id number] Procedure Note Srinivasa Donohue MD - 02/01/2023 [...] Srinivasa Donohue M.D. MZ: DEBORA Report ID: [id number] Reading Location: [place] [address] [facility] DO IMG CT PROCEDURES Tamra l Result from Last 3 Months or Most Recently Relevant to Health Maintenance Insurance MANAGED MEDICAID GENERIC RISK OTHER IDPA [facility] MEDICARE ADVANTAGE [facility] MEDICARE Address: [address] [address] [place] [address] IDPA [facility] MEDICARE ADVANTAGE [facility] MEDICARE Address: [address] [address] [place] [address] Advance Directives For more information, please contact: [phone] Documents on File Type Date Recorded Patient Special Machine Stitcher Expl anation ADVANCE DIRECTIVE 02/17/2023 11:49 AM POLS T - Phys Order for PT Preferences ADVANCE DIRECTIVE 02/16/2023 12:46 PM Stoney r of Academic Advising Director-Medical ADVANCE DIRECTIVE 02/11/2023 2:26 PM Stoney r of Academic Advising Director-Medical * Full Code (Latest Code Status on [...] Agent Relationshi p Communication Carlos Enrique [facility] Health Care Agent Jas Vaca Stefania [facility] Health Care Agent Care Teams Material Combiner Relationship Specialty Start Date End Date Magnus Villafuerte MD PCP - General Family Practice 01/30/23
[2024-07-14 19:47] LABS: Basophils Percent Auto 0.3 % (0.2-1.2); Eosinophils Absolute Auto 0.1 K/mm3 (0-0.3); Eosinophils Percent Auto 1.6 % (0-4.4); Hematocrit 41.8 % (42.0-52.0); Immature Granulocyte Absolute 0.04 K/mm3 (0.00-0.031); Immature Granulocyte Percent A 0.4 % (0-0.5); Lymphocytes Absolute Auto 1.89 K/mm3 (0.9-3.2); Mean Corpuscular HGB Conc 33.5 g/dl (32-36); Mean Corpuscular Hemoglobin 30.6 pg (26-34); Mean Corpuscular Volume 91.3 fl (80-100); Mean Platelet Volume 10.1 fl (7.4-10.4); Monocytes Absolute Auto 0.7 K/mm3 (0.1-0.6); Monocytes Percent Auto 7.3 % (2.6-8.5); Neutrophils Absolute Auto 6.2 K/mm3 (1.3-6.7); Neutrophils Percent Auto 69.4 % (45.5-73.1); Platelet Count Result 241 k/mm3 (150-375); Red Blood Count 4.58 M/mm3 (4.6-6.20); Red Cell Distribution Width 14.9 % (11.5-14.5)
[2024-07-14 20:27] LABS: Alanine Aminotransferase 16 U/L (6-50); Albumin Level 4.3 g/dL (3.5-5.1); Alkaline Phosphatase 119 U/L (38-126); Anion Gap 11 mmol/L (4-12); Aspartate Amino Transferase 28 U/L (17-59); Bilirubin,Total 0.3 mg/dL (0.2-1.3); Blood Urea Nitrogen 12 mg/dL (9-20); Calcium 9.2 mg/dL (8.4-10.2); Carbon Dioxide 23 mmol/L (22-30); Chloride 103 mmol/L (98-107); Cholesterol 100 mg/dL (0-200); Estimated Glomerular Filt Rate > 60; Glucose 77 mg/dL (65-110); HDL Direct 30 mg/dL; Potassium 3.9 mmol/L (3.4-5.0); Sodium 137 mmol/L (137-145); Triglycerides 178 mg/dL (<150)
[2024-07-14 20:38] LABS: LDL Cholesterol Direct 39 mg/dL
== END 2024-07-14 14:55 | disposition home or self-care (01) ==
PROVIDERS: PCP Nurse Practitioner Adult Health; Visit Provider Nurse Practitioner Adult Health
DX: E78.5 Hyperlipidemia, unspecified (principal)
CPT/HCPCS: 36415; 80053; 80061; 85025

== ENCOUNTER 2025-01-17 14:28 | Outpatient (CLI) | payer MEDICARE, MEDICAID, SELFPAY ==
--- OUTSIDE RECORDS SUMMARY | 2025-01-17 15:14 | XMS_ITS | Clinical Summary ---
Author Organization [facility] Address [address] [place] [address] Care Team Providers Care Table And Desk Finisher Name Role Phone Magnus Villafuerte MD Primary Care Provider [phone] Allergies No known active allergies Medications ibuprofen [...] 04/16/2023 Assessment & Plan (04/16/2023 9:57 AM MARKETING TRAINEE): Stable continue Lipitor Hx of AKA (above knee amputation), right 023 Assessment & Plan (03/05/2023 12:03 PM MARKETING TRAINEE): Impression: Patient is status post right zpktx-jwt-gcmp amputation. Surgical incision is well approximated, healing with kat intact. The patient has an adequate residual limb that would be appropriate for a level K3 prosthesis. They're currently undergoing prosthesis evaluation and fitting for a right igqdc-qxr-auxa prosthesis. Patient has no complaints or concerns at this time. I have examined the patient and recommend a right hqkky-fmv-lgqz prosthetic. The patient was a level K3 ambulator prior to his amputation. The patient is capable and has expressed a desire to live independently and do normal erp analyst and activities of daily living. Patient is [...] follow-up in 6 weeks. -recommend evaluation with Radio Assembler for a right gawxb-dqo-enxp prosthesis. Severe malnutrition 02/14/2023 Mass of pancreas 02/06/2023 Pancreatic mass 02/04/2023 Lung nodule 02/04/2023 Localized swelling of right foot 01/31/2023 Cellulitis of foot 01/30/2023 PAOD (peripheral arterial occlusive disease) Assessment & Plan (04/16/2023 9:57 AM MARKETING TRAINEE): Status post right above knee amputation. Doing well and completely healed. Continue working with Radio Assembler, can follow-up as needed. Tobacco abuse disorder [...] drink = 0.6 oz pur e alcohol) [facility] Utilities Answer Date Recorded In the past 12 months has [employer], gas, oil, or water company threatened to shut off services in your home? No 02/14/2023 Social Connection and Isolation Panel Answer Date Recorded In a typical week, how many times do you talk on the phone with family, friends, or neighbors? Three times a week 02/14/2023 How often do you get togethe r with friends or relatives? Three times a week 02/14/2023 How often do you attend chur ch or mandaeism services? Never 02/14/2023 Do you belong to any clubs o r organizations such as yazidi groups, unions, fraternal or athletic groups, or [...] place to sleep or slept in a longterm (including now)? No 02/14/2023 Personal Safety Answer Date Recorded Have you ever been in or are you currently in a harmful physical or emotional relationship or is someone making you feel afraid or unsafe? Denies 02/05/2023 Sex and Gender Information Value Date Recorded Sex Assigned at Not on file Legal Sex Male 8:12 AM MARKETING TRAINEE Gender Identity Not on file Sexual Orientation Not on file Obstetrics History Last Filed Vital Signs Vital Sign Reading Time Taken Comments Blood Pressure 106/66 04/16/2023 9:41 AM MARKETING TRAINEE Pulse 84 04/16/2023 9:41 AM MARKETING TRAINEE Temperature 36.6 C (97.9 F) 02/18/2023 11:50 AM MARKETING TRAINEE Respiratory Rate 18 02/18/2023 11:50 AM MARKETING TRAINEE Oxygen Saturation 92% 04/16/2023 9:41 AM MARKETING TRAINEE Inhaled Oxygen Concentration - - Weight 59 kg (130 lb) 03/05/2023 10:31 AM MARKETING TRAINEE Height 182.9 cm (6') 03/05/2023 10:31 AM MARKETING TRAINEE Body Mass Index 17.63 03/05/2023 10:31 AM MARKETING TRAINEE Plan of Treatment Health Maintenance Due Date Last Done Comments Colon Cancer Screening-Colonoscopy 1950 Hepatitis C Screening 1950 DTaP/Tdap/Td Vaccine (1 - Tdap) 1961 Hepatitis B Screening 1968 Well Visit 65+ 2015 Zoster Vaccine (2 of 3) 09/15/2015 07/21/2015 Depression Screening 01/31/2024 01/30/2023 Fall Risk Assessment 02/19/2024 02/18/2023 Influenza Vaccine (#1) 2024 12/18/2018, 2014 Pneumococcal vaccine 65+ Completed 019, 12/26/2017, 05/15/2015 [...] Srinivasa Donohue M.D. MZ: DEBORA Report ID: [id number] Reading Location: [place] [address] Procedure Note Sirnivasa Donohue MD - 02/01/2023 EXAM DESCRIPTION: CT [...] Srinivasa Donohue M.D. MZ: DEBORA Report ID: [id number] Reading Location: [id number] [facility] DO IMG CT PROCEDURES Tamra l Result from Last 3 Months or Most Recently Relevant to Health Maintenance Insurance MANAGED MEDICAID GENERIC RISK OTHER IDPA [facility] MEDICARE ADVANTAGE IDPA [facility] MEDICARE ADVANTAGE Advance Directives For more information, please contact: [phone] Documents on File Type Date Recorded Patient Peanut Separator Expl anation ADVANCE DIRECTIVE 02/17/2023 11:49 AM POLS T - Phys Order for PT Preferences ADVANCE DIRECTIVE 02/16/2023 12:46 PM Stoney r of Cube Cutter-Medical ADVANCE DIRECTIVE 02/11/2023 2:26 PM Stoney r of Cube Cutter-Medical * Full Code (Latest Code Status on [...] Healthcare Agent Relationshi p Communication Carlos Enrique Christiane [facility] Health Care Agent Jas Vaca [facility] Health Care Agent Care Teams Table And Desk Finisher Relationship Specialty Start Date End Date Magnus Villafuerte MD PCP - General Family Practice 01/30/23
--- OUTSIDE RECORDS SUMMARY | 2025-01-17 15:14 | XMS_ITS | Clinical Summary ---
Author Organization [facility] Address [address] [place] [address] Phone Care Team Providers Care Maintainer Central Office Name Role Phone Jose Fam Primary Care Provider [phone] Allergies No known active allergies Medications clopidogrel [...] on file Legal Sex Male 3:49 PM STRIP CUTTER Gender Identity Not on file Sexual Orientation [...] 11:00 AM CDT Height 195.6 cm (6' 5) 10/07/2018 11:00 AM CDT Body Mass Index 19.8 10/07/2018 11:00 AM CDT Plan of Treatment Health Maintenance Due Date Last Done Comments Hepatitis C Virus (HCV) Screening 1950 TdaP Immunization 1950 Cologuard 1995 Colonoscopy 1995 Colorectal Cancer Screening 1995 Immunochemical Fecal Occult Blood 1995 Respiratory Syncytial Virus (RSV) Immunization (Adult) (1 - Risk 60-74 years 1-dose series) 2010 Zoster Immunization (2 of 3) 09/15/2015 07/21/2015 Medicare Initial AWV [id number] 04/14/2016 Influenza Immunization (#1) 2024 01/25/2015 SARS-COV-2 Immunization (3 - season) 2024 12/01/2020, 11/10/2020 Pneumococcal Immunization (5 0+ years) Completed 12/26/2017, 05/15/2015 Pneumococcal Immunization Combined Discontinued 12/26/2017, 05/15/2015 Hepatitis B Immunization Aged Out No longer eligible based on patient's age to complete this topic Human Papillomavirus (HPV) Immunization Aged Out No longer eligible based on patient's age to complete this topic Meningococcal Immunization (ACWY) Aged Out No longer eligible based on patient's age to complete this topic Rotavirus Immunization Aged Out No lo nger eligible based on patient's age to complete this topic Medical Devices Implanted Type Area Sales/Marketing Device Identifier Shelf Expiration Date Model / Serial / Lot Stent Vasc 60mm 7mm Smart Cntrl Micromarker Iliac Ntnl Self Expand Micromesh Segment Delivery Hndl - [id number] Implanted:Qty: 1 on 08/28/2018 by Russell Bennett MD at [facility] IMPLANT Right: Leg [employer] 08/12/2019 [id number] / / [id number] Stent Vasc 40mm 8mm Smart Cntrl Micromarker Iliac Ntnl Self Expand Micromesh Segment Delivery Hndl - [id number] Implanted:Qty: 1 on 08/28/2018 by Russell Bennett MD at [facility] IMPLANT Right: Leg [employer] 02/11/2019 [id number] / / [id number] Stent Vasc 100mm 6mm Smart Cntrl Micromarker Iliac Ntnl Self Expand Micromesh Segment Delivery Hndl - [id number] Implanted:Qty: 1 on 08/28/2018 by Russell Bennett MD at [facility] IMPLANT Left: Leg [employer] 02/11/2019 [id number] / / [id number] Stent Vasc 80mm 8mm Smart Cntrl Micromarker Iliac Ntnl Self Expand Micromesh Segment Delivery Hndl - [id number] Implanted:Qty: 1 on 08/28/2018 by Russell Bennett MD at [facility] IMPLANT Left: Leg [employer] 10/11/2018 [id number] / / [id number] Device Clsr 70cm 6fr Angio-Seal Vip .035in Vasc Collagen Valuelink Gw Insertion Shth J Sales Solutions Representative - [id number] Implanted:Qty: 1 on 08/28/2018 by Russell Bennett MD at [facility] IMPLANT Left: Leg [employer] 03/13/2019 [id number] / / [id number] Device Clsr 70cm 6fr Angio-Seal Vip .035in Vasc Collagen Valuelink Gw Insertion Shth J Sales Solutions Representative - [id number] Implanted:Qty: 1 on 08/28/2018 by Russell Bennett MD at [facility] IMPLANT Right: Leg [employer] 03/13/2019 [id number] / / [id number] Stent Vasc 150mm 5.5mm 6fr Supera Twila Ntnl Otw Self Expand Closed End Braid Radopq 120cm Acpt - [id number] Implanted:Qty: 1 on 10/09/2018 by Russell Bennett MD at [facility] IMPLANT Leg [employer] 11/12/2019 S-55-150- 120-P6 / / [id number] Stent Vasc 150mm 6mm Smart Micromarker Iliac Ntnl Self Expand Micromesh Segment Delivery Hndl 120cm - [id number] Implanted:Qty: 1 on 10/09/2018 by Russell Bennett MD at [facility] IMPLANT Leg [employer] 10/11/2018 [id number] / / [id number] Device Clsr 70cm 6fr Angio-Seal Vip .035in Vasc Collagen Valuelink Gw Insertion Shth J Sales Solutions Representative - [id number] Implanted:Qty: 1 on 10/09/2018 by Russell Bennett MD at [facility] IMPLANT Leg [employer] 05/23/2019 [id number] / / [id number] Insurance MEDICARE [place]ID [place] Care Teams Maintainer Central Office Relationship Specialty Start Date End Date Jose Fam [address] [place] [address] PCP - General Family Medicine 06/19/18
[2025-01-17 18:31] LABS: Hematocrit 39.5 % (42.0-52.0); Hemoglobin 13.0 g/dL (14.0-18.0); Mean Corpuscular HGB Conc 32.9 g/dl (32-36); Mean Corpuscular Hemoglobin 29.7 pg (26-34); Mean Corpuscular Volume 90.2 fl (80-100); Platelet Count Result 296 k/mm3 (150-375); Red Blood Count 4.38 M/mm3 (4.6-6.20); White Blood Count 8.9 K/mm3 (4.5-10.0)
[2025-01-17 18:35] LABS: Alanine Aminotransferase 17 U/L (6-50); Albumin Level 4.0 g/dL (3.5-5.1); Alkaline Phosphatase 125 U/L (38-126); Anion Gap 10 mmol/L (4-12); Aspartate Amino Transferase 37 U/L (17-59); Bilirubin,Total 0.3 mg/dL (0.2-1.3); Blood Urea Nitrogen 12 mg/dL (9-20); Calcium 8.9 mg/dL (8.4-10.2); Carbon Dioxide 23 mmol/L (22-30); Chloride 104 mmol/L (98-107); Cholesterol 102 mg/dL (0-200); Estimated Glomerular Filt Rate > 60; Glucose 89 mg/dL (65-110); HDL Direct 29 mg/dL; Potassium 3.9 mmol/L (3.4-5.0); Sodium 137 mmol/L (137-145); Total Protein 6.5 g/dL (6.3-8.2); Triglycerides 252 mg/dL (<150)
== END 2025-01-17 14:29 | disposition home or self-care (01) ==
PROVIDERS: PCP Nurse Practitioner Adult Health; Visit Provider Nurse Practitioner Adult Health
DX: I70.90 Unspecified atherosclerosis (principal); E78.5 Hyperlipidemia, unspecified
CPT/HCPCS: 36415; 80053; 80061; 85027